=== PATIENT | male | born 1970 | race Caucasian/White ===

== ENCOUNTER 2016-10-29 11:27 | Emergency (ER) | payer SELFPAY ==
[2016-10-29 11:31] VITALS: TEMP 98.2
--- NOTE | 2016-10-29 13:01 | EDPHY ---
H & P Time Seen by Provider: 10/29/16 12:35 HPI/ROS: CHIEF COMPLAINT: Left 2nd finger injury HISTORY OF PRESENT ILLNESS: 46-year-old male presents to the emergency department with avulsion to his left index finger. The patient was using a knife and accidentally cut his finger. This happened just prior to arrival. He is right-hand dominant. He believes his tetanus shot is current. ROS: Denies numbness or tingling in his fingers, retained foreign body, injury to the other fingers. Past Medical/Surgical History: Hernia repair Social History: and lives in [place] Smoking Status: Former smoker Physical Exam: Patient has a 1 cm skin avulsion to the distal, palmar aspect of the left index finger with partial nail avulsion. There is active bleeding noted. The patient was at has no other injuries to his fingers. Does not extend into the D IP joint. No palpable bony tenderness. Constitutional: Initial Vital Signs Temperature (C) 36.8 C 10/29/16 11:28 Heart Rate 65 10/29/16 11:28 Respiratory Rate 16 10/29/16 11:28 Blood Pressure 115/89 H 10/29/16 11:28 O2 Sat (%) 95 10/29/16 11:28 O2 Delivery Mode Room Air Allergies/Adverse Reactions: No Known Allergies Allergy (Verified 01/07/15 09:24) Home Medications: Medication Instructions Recorded Docusate Sodium [Colace] 100 mg PO BID #10 cap 01/07/15 Hydrocodone/APAP 5/325 [Brandon 1 - 2 each PO Q6 PRN #20 tab 01/07/15 5/325] MDM/Departure - MDM Procedures: Verbal consent was obtained from the patient. The 1 cm skin avulsion on the left index finger was anesthetized using digital block using 1% lidocaine without epinephrine 0.5% bupivacaine without epinephrine. The wound was irrigated with saline, draped and explored to its base with a gloved finger. There were no deep structures involved. No tendon injury was identified. No sutures required. The procedure was performed by myself. ED Course/Re-evaluation: 46-year-old male presents with left index finger avulsion. No bony involvement. Gel foam and tube gauze dressing applied. Patient was given wound care precautions. - Depart Disposition: Home, Routine, Self-Care Clinical Impression: Skin avulsion right index finger Condition: Good Instructions: Skin Avulsion (ED), Acute Wounds (ED) Additional Instructions: Return if you develop signs or symptoms such as redness, swelling, increased pain, fever, purulent drainage. Ibuprofen 600 mg every 8 hours as needed for pain. Elevate your finger for comfort. Referrals: Zi Calixto MD [Medical Doctor] - 2-3 days, call for appt. (Orthopedic hand surgeon on-call)
[2016-10-29 14:07] VITALS: BP 124/78; PULSE 78; RESP 18; O2SAT 96
== END 2016-10-29 14:26 | disposition home or self-care (01) ==
PROC: 3E0T3BZ Introduction of Anesthetic Agent into Peripheral Nerves and Plexi, Percutaneous Approach (ICD-10-PCS; principal; 2016-10-29)
DX: S61.200A Unspecified open wound of right index finger without damage to nail, initial encounter (principal); Z87.891 Personal history of nicotine dependence; W26.0XXA Contact with knife, initial encounter